=== PATIENT | female | born 1980 | race Two or more races ===

== ENCOUNTER → 2016-06-12 | Outpatient (CLI) | payer OTHER ==
[~2016-06-12] MED LIST: ADV250 IH; ALBU8HFA IH
[2016-06-12 15:53] LABS: BASOPHILS % (AUTO) 0.1 % (0.0-2.0); EOSINOPHILS % (AUTO) 0.7 % (1.0-6.0); HEMOGLOBIN 12.4 g/dL (12.0-16.0); LYMPHOCYTES # (AUTO) 1.6 K/uL (1.0-4.8); LYMPHOCYTES % (AUTO) 17.5 % (22.0-44.0); MEAN CORPUSCULAR HGB CONC 32.6 G/dL (31.0-37.0); MEAN CORPUSCULAR VOLUME 86 fL (80-100); MONOCYTES # (AUTO) 0.3 K/uL (0.1-1.0); MONOCYTES % (AUTO) 3.1 % (2.0-9.0); NEUTROPHILS # (AUTO) 7.3 K/uL (1.8-7.7); NEUTROPHILS % (AUTO) 78.6 % (40.0-70.0); PLATELET COUNT (AUTO) 281 K/uL (150-450); RED BLOOD CELL COUNT(AUTO) 4.42 MIL/uL (4.00-5.20); RED CELL DISTRIBUTION WIDTH 15.2 % (11.5-14.5); WHITE BLOOD COUNT (AUTO) 9.3 K/uL (4.5-11.0)
[2016-06-12 17:31] LABS: RAPID PLASMA REAGIN NONREACTIVE (NONREACTIVE)
[2016-06-12 17:32] LABS: RUBELLA SCREEN (IGG) IMMUNE (IMMUNE)
[2016-06-15 14:32] LABS: HEMOGLOBIN A1 97.8 % (94.0-98.0)
[2016-06-15 23:15] LABS: GC DNA N.A. AMPLIFY Negative (Negative)
== END | disposition home or self-care (01) ==
LOC: LABPV 10:03
PROVIDERS: ATTEND Obstetrics & Gynecology
DX: Z34.81 Encounter for supervision of other normal pregnancy, first trimester (principal); Z3A.12 12 weeks gestation of pregnancy
CPT/HCPCS: 81220; 82947; 83021; 86592; 86762; 86850; 86900; 86901; 87086; 87340; 87389; 87491; 87591; 99001

== ENCOUNTER → 2016-06-25 | Outpatient (CLI) | payer OTHER | END | disposition home or self-care (01) | LOC: LABPV 11:16 | PROVIDERS: ATTEND Obstetrics & Gynecology | DX: O24.415 Gestational diabetes mellitus in pregnancy, controlled by oral hypoglycemic drugs (principal); Z3A.00 Weeks of gestation of pregnancy not specified | CPT/HCPCS: 82652 ==

== ENCOUNTER → 2016-07-31 | Outpatient (CLI) | payer OTHER | END | disposition home or self-care (01) | LOC: LABPV 14:13 | PROVIDERS: ATTEND Obstetrics & Gynecology | DX: O09.892 Supervision of other high risk pregnancies, second trimester (principal); Z3A.14 14 weeks gestation of pregnancy | CPT/HCPCS: 99001 ==

== ENCOUNTER → 2016-08-03 | Outpatient (CLI) | payer OTHER | END | disposition home or self-care (01) | LOC: RADPV 13:15 | PROVIDERS: ATTEND Obstetrics & Gynecology | DX: O32.2XX0 Maternal care for transverse and oblique lie, not applicable or unspecified (principal); Z3A.19 19 weeks gestation of pregnancy | CPT/HCPCS: 76812 ==

== ENCOUNTER → 2016-10-20 | Outpatient (CLI) | payer OTHER ==
[2016-10-20 13:16] LABS: BASOPHILS % (AUTO) 0.2 % (0.0-2.0); EOSINOPHILS % (AUTO) 0.7 % (1.0-6.0); HEMATOCRIT 32.3 % (36-46); LYMPHOCYTES # (AUTO) 1.6 K/uL (1.0-4.8); LYMPHOCYTES % (AUTO) 16.2 % (22.0-44.0); MEAN CORPUSCULAR HEMOGLOBIN 28.4 pg (26.0-34.0); MEAN CORPUSCULAR HGB CONC 33.9 G/dL (31.0-37.0); MEAN CORPUSCULAR VOLUME 84 fL (80-100); MONOCYTES # (AUTO) 0.4 K/uL (0.1-1.0); MONOCYTES % (AUTO) 3.8 % (2.0-9.0); NEUTROPHILS # (AUTO) 7.8 K/uL (1.8-7.7); NEUTROPHILS % (AUTO) 79.1 % (40.0-70.0); PLATELET COUNT (AUTO) 275 K/uL (150-450); RED BLOOD CELL COUNT(AUTO) 3.86 MIL/uL (4.00-5.20); RED CELL DISTRIBUTION WIDTH 15.3 % (11.5-14.5); WHITE BLOOD COUNT (AUTO) 9.8 K/uL (4.5-11.0)
== END | disposition home or self-care (01) ==
LOC: LABPV 11:38
PROVIDERS: ATTEND Obstetrics & Gynecology
DX: O09.522 Supervision of elderly multigravida, second trimester (principal); O24.415 Gestational diabetes mellitus in pregnancy, controlled by oral hypoglycemic drugs; Z3A.00 Weeks of gestation of pregnancy not specified

== ENCOUNTER 2016-10-30 19:53 | Observation (INO) | payer OTHER ==
[~2016-10-30] VITALS: Ht 160 cm; Wt 56.7 kg
[2016-10-30 20:15] VITALS: BP 121/60
[2016-10-30] MEDS ORDERED: GLYB5TAB8 PO (20:16)
[2016-10-30] MEDS ORDERED: PREN1TAB89 (20:18)
[2016-10-31 10:47] LABS: GLUCOSE COMMENT 1 Post Meal; GLUCOSE,POINT OF CARE 117 MG/DL (70-110)
== END 2016-10-30 21:25 | disposition home or self-care (01) ==
LOC: 4S 19:53
PROVIDERS: ADMIT Obstetrics & Gynecology; ATTEND Obstetrics & Gynecology
DX: O24.419 Gestational diabetes mellitus in pregnancy, unspecified control (principal); O99.213 Obesity complicating pregnancy, third trimester; O99.513 Diseases of the respiratory system complicating pregnancy, third trimester; J45.909 Unspecified asthma, uncomplicated; O09.523 Supervision of elderly multigravida, third trimester; Z3A.32 32 weeks gestation of pregnancy
CPT/HCPCS: 59025; 82962; G0378

== ENCOUNTER 2016-11-01 19:40 | Observation (INO) | payer OTHER ==
[~2016-11-01] VITALS: Ht 160 cm; Wt 110.7 kg
[~2016-11-01 19:40] MED LIST changes: -ADV250 IH; +GLYB5TAB8 PO; +PREN1TAB89
[2016-11-01 20:16] LABS: GLUCOSE COMMENT 1 Post Meal; GLUCOSE,POINT OF CARE 115 MG/DL (70-110)
== END 2016-11-01 20:45 | disposition home or self-care (01) ==
LOC: 4S 19:40
PROVIDERS: ADMIT Obstetrics & Gynecology; ATTEND Obstetrics & Gynecology
DX: O24.419 Gestational diabetes mellitus in pregnancy, unspecified control (principal); O99.213 Obesity complicating pregnancy, third trimester; O09.523 Supervision of elderly multigravida, third trimester; Z3A.32 32 weeks gestation of pregnancy
CPT/HCPCS: 59025; 82962; G0378

== ENCOUNTER 2016-11-05 19:35 | Observation (INO) | payer OTHER ==
[~2016-11-05] VITALS: Ht 160 cm; Wt 110.7 kg
[~2016-11-05 19:35] MED LIST changes: +ADV250 IH
[2016-11-05 20:06] VITALS: BP 109/64
[2016-11-05] MEDS ORDERED: GLYB2.5 PO ×2 (20:10→20:11)
[2016-11-05 20:17] LABS: GLUCOSE,POINT OF CARE 117 MG/DL (70-110)
== END 2016-11-05 20:45 | disposition home or self-care (01) ==
LOC: 4S 19:35
PROVIDERS: ADMIT Obstetrics & Gynecology; ATTEND Obstetrics & Gynecology
DX: O24.419 Gestational diabetes mellitus in pregnancy, unspecified control (principal); O62.9 Abnormality of forces of labor, unspecified; O09.523 Supervision of elderly multigravida, third trimester; Z3A.33 33 weeks gestation of pregnancy
CPT/HCPCS: 59025; 82962; G0378

== ENCOUNTER 2016-11-05 22:41 | Observation (INO) | payer OTHER ==
[~2016-11-05] VITALS: Ht 160 cm; Wt 112.1 kg
[~2016-11-05 22:41] MED LIST changes: -ADV250 IH; +GLYB2.5 PO; -GLYB5TAB8 PO
[2016-11-09 19:41] VITALS: BP 110/62
[2016-11-11 16:32] LABS: GLUCOSE COMMENT 1 Doctor Notified; GLUCOSE,POINT OF CARE 172 MG/DL (70-110)
== END 2016-11-09 20:11 | disposition home or self-care (01) ==
LOC: 4S 11-09 20:11
PROVIDERS: ADMIT Obstetrics & Gynecology; ATTEND Obstetrics & Gynecology
DX: O24.419 Gestational diabetes mellitus in pregnancy, unspecified control (principal); O99.213 Obesity complicating pregnancy, third trimester; O09.523 Supervision of elderly multigravida, third trimester; Z3A.34 34 weeks gestation of pregnancy
CPT/HCPCS: 59025; 82962; G0378

== ENCOUNTER 2016-11-13 19:49 | Observation (INO) | payer OTHER ==
[~2016-11-13] VITALS: Ht 160 cm; Wt 112.5 kg
[2016-11-13 20:57] VITALS: BP 127/63
[2016-11-13 20:57] LABS: GLUCOSE,POINT OF CARE 77 MG/DL (70-110)
== END 2016-11-13 21:00 | disposition home or self-care (01) ==
LOC: 4S 19:49
PROVIDERS: ADMIT Obstetrics & Gynecology; ATTEND Obstetrics & Gynecology
DX: O24.419 Gestational diabetes mellitus in pregnancy, unspecified control (principal); O09.523 Supervision of elderly multigravida, third trimester; Z3A.34 34 weeks gestation of pregnancy
CPT/HCPCS: 59025; 82962; G0378

== ENCOUNTER 2016-11-16 19:51 | Observation (INO) | payer OTHER ==
[~2016-11-16] VITALS: Ht 160 cm; Wt 112.0 kg
[2016-11-16 21:23] LABS: GLUCOSE COMMENT 1 Doctor Notified; GLUCOSE,POINT OF CARE 152 MG/DL (70-110)
[2016-11-16 23:00] VITALS: BP 116/56
== END 2016-11-16 22:40 | disposition home or self-care (01) ==
LOC: 4S 19:51
PROVIDERS: ADMIT Obstetrics & Gynecology; ATTEND Obstetrics & Gynecology
DX: O24.419 Gestational diabetes mellitus in pregnancy, unspecified control (principal); Z3A.35 35 weeks gestation of pregnancy
CPT/HCPCS: 59025; 82962; G0378

== ENCOUNTER → 2016-11-20 | Outpatient (CLI) | payer OTHER | END | disposition home or self-care (01) | LOC: RADPV 10:46 | PROVIDERS: ATTEND Obstetrics & Gynecology | DX: O99.213 Obesity complicating pregnancy, third trimester (principal); O09.513 Supervision of elderly primigravida, third trimester; Z3A.35 35 weeks gestation of pregnancy | CPT/HCPCS: 76812 ==

== ENCOUNTER 2016-11-21 21:07 | Observation (INO) | payer OTHER ==
[~2016-11-21] VITALS: Ht 160 cm; Wt 112.0 kg
[2016-11-21 21:31] LABS: GLUCOSE,POINT OF CARE 92 MG/DL (70-110)
== END 2016-11-21 21:40 | disposition home or self-care (01) ==
LOC: 4S 21:07
PROVIDERS: ADMIT Obstetrics & Gynecology; ATTEND Obstetrics & Gynecology
DX: O24.419 Gestational diabetes mellitus in pregnancy, unspecified control (principal); Z3A.35 35 weeks gestation of pregnancy
CPT/HCPCS: 59025; 82962; G0378

== ENCOUNTER 2016-12-04 14:50 | Observation (INO) | payer OTHER ==
[~2016-12-04] VITALS: Ht 160 cm; Wt 112.0 kg
[2016-12-04 15:25] VITALS: BP 116/76
[2016-12-04] MEDS ORDERED: GLYB5 PO ×2 (15:33)
[2016-12-04 15:52] LABS: GLUCOSE COMMENT 1 Post Meal; GLUCOSE,POINT OF CARE 152 MG/DL (70-110)
== END 2016-12-04 16:10 | disposition home or self-care (01) ==
LOC: 4S 14:50
PROVIDERS: ADMIT Obstetrics & Gynecology; ATTEND Obstetrics & Gynecology
DX: O24.419 Gestational diabetes mellitus in pregnancy, unspecified control (principal); Z3A.37 37 weeks gestation of pregnancy
CPT/HCPCS: 59025; 82962; G0378

== ENCOUNTER 2016-12-06 23:20 | Inpatient (IN) | payer OTHER ==
[~2016-12-06] VITALS: Ht 160 cm; Wt 112.9 kg
[~2016-12-06 23:20] MED LIST changes: +GLYB5 PO
[2016-12-06] MEDS ORDERED: RINGERS SOLUTION,LACTATED 1,000 ML IV SCH (23:27)
[2016-12-06] MEDS ORDERED: RINGERS SOLUTION,LACTATED 1,000 ML IV PRN (23:27)
[2016-12-06] MEDS ORDERED: OXYTOCIN 30 UNITS/LACT RINGERS 500 ML IV ONE (23:27)
[2016-12-06] MEDS ORDERED: METOCLOPRAMIDE HCL 5 MG/ML 2 ML VIAL IVP PRN (23:30)
[2016-12-06] MEDS ORDERED: CITRIC ACID/SODIUM CITRATE 30 ML SOLUTION UDCUP PO PRN (23:30)
[2016-12-07 00:09] LABS: BASOPHILS # (AUTO) 0.02 K/uL (0.00-0.20); BASOPHILS % (AUTO) 0.3 % (0.0-2.0); EOSINOPHILS # (AUTO) 0.07 K/uL (0.00-0.70); EOSINOPHILS % (AUTO) 0.84 % (1.0-6.0); HEMATOCRIT 34.4 % (36-46); HEMOGLOBIN 11.5 g/dL (12.0-16.0); LYMPHOCYTES # (AUTO) 2.5 K/uL (1.0-4.8); MEAN CORPUSCULAR HEMOGLOBIN 27.5 pg (26.0-34.0); MEAN CORPUSCULAR HGB CONC 33.5 G/dL (31.0-37.0); MEAN CORPUSCULAR VOLUME 82 fL (80-100); MONOCYTES # (AUTO) 0.5 K/uL (0.1-1.0); MONOCYTES % (AUTO) 5.7 % (2.0-9.0); NEUTROPHILS # (AUTO) 5.7 K/uL (1.8-7.7); NEUTROPHILS % (AUTO) 65.2 % (40.0-70.0); PLATELET COUNT (AUTO) 258 K/uL (150-450); RED BLOOD CELL COUNT(AUTO) 4.18 MIL/uL (4.00-5.20); RED CELL DISTRIBUTION WIDTH 15.5 % (11.5-14.5); WHITE BLOOD COUNT (AUTO) 8.8 K/uL (4.5-11.0)
[2016-12-07] MEDS ORDERED: DINOPROSTONE 10 MG VAGINAL SUPPOSITORY VG ONE (01:00)
[2016-12-07 01:28] LABS: GLUCOSE,POINT OF CARE 137 MG/DL (70-110)
[2016-12-07 03:03] LABS: GLUCOSE,POINT OF CARE 135 MG/DL (70-110)
[2016-12-07] MEDS: FentaNYL CITRATE-PF 100 MCG/2 ML VIAL IVP PRN ×2 (04:07→04:13)
[2016-12-07 05:13] LABS: GLUCOSE,POINT OF CARE 125 MG/DL (70-110)
[2016-12-07] MEDS ORDERED: FentaNYL/BUPIV 0.125%/NS/PF 200 ML ED ONE (05:20)
[2016-12-07] MEDS ORDERED: LIDOCAINE HCL 2%/EPI 1:200,000/PF 10 ML VIAL ONE (05:20)
[2016-12-07] MEDS ORDERED: FentaNYL/BUPIV 0.125%/NS/PF 200 ML ED PRN (05:40)
[2016-12-07] MEDS ORDERED: DiphenhydrAMINE HCL 50 MG/ML VIAL IVP PRN (05:45)
[2016-12-07] MEDS ORDERED: ONDANSETRON HCL 4 MG/2 ML VIAL IVP PRN (05:45)
[2016-12-07] MEDS ORDERED: NALBUPHINE HCL 10 MG/ML VIAL IVP PRN (05:45)
[2016-12-07] MEDS ORDERED: PROMETHAZINE HCL 25 MG/ML VIAL IM PRN (05:45)
[2016-12-07] MEDS ORDERED: TERBUTALINE SULFATE 1 MG/ML VIAL SQ PRN (06:15)
[2016-12-07] MEDS ORDERED: OXYGEN THERAPY IH SCH (08:00)
[2016-12-07] MEDS ORDERED: ACETAMINOPHEN/CODEINE 300-30 MG TABLET PO PRN ×2 (08:30)
[2016-12-07] MEDS ORDERED: BENZOCAINE 20%/MENTHOL 56 GM SPRAY CANISTER TP PRN (08:30)
[2016-12-07] MEDS ORDERED: GLYCERIN/WITCH HAZEL LEAF 40 PADS JAR TP PRN (08:30)
[2016-12-07] MEDS ORDERED: LANOLIN 7 GM OINTMENT TP PRN (08:30)
[2016-12-07] MEDS: SENNA/DOCUSATE SODIUM 187-50 MG TABLET PO SCH ×2 (09:04→21:00)
[2016-12-07] MEDS: MAGNESIUM HYDROXIDE SUSPENSION 30 ML UDCUP PO SCH ×2 (09:04→21:00)
[2016-12-07] MEDS: IBUPROFEN 600 MG TABLET PO PRN (14:27)
[2016-12-08] MEDS: IBUPROFEN 600 MG TABLET PO PRN ×2 (01:44→08:13)
[2016-12-08] MEDS: SENNA/DOCUSATE SODIUM 187-50 MG TABLET PO SCH (08:13)
[2016-12-08] MEDS: MAGNESIUM HYDROXIDE SUSPENSION 30 ML UDCUP PO SCH (09:00)
[2016-12-08] MEDS ORDERED: IBUP-2070 PO (09:24)
[2016-12-08] MEDS ORDERED: DSS100 PO (09:25)
== END 2016-12-08 11:35 | disposition home or self-care (01) | DRG 775 ==
LOC: 4S 23:20 → PREOBSVTOIN 01-04 23:34
PROVIDERS: ADMIT Obstetrics & Gynecology; ATTEND Obstetrics & Gynecology
PROC: 10E0XZZ Delivery of Products of Conception, External Approach (ICD-10-PCS; principal; 2016-12-06)
PROC: 10907ZC Drainage of Amniotic Fluid, Therapeutic from Products of Conception, Via Natural or Artificial Opening (ICD-10-PCS; 2016-12-06)
DX: O24.419 Gestational diabetes mellitus in pregnancy, unspecified control (principal); J45.909 Unspecified asthma, uncomplicated; Z37.0 Single live birth; O99.511 Diseases of the respiratory system complicating pregnancy, first trimester; Z90.49 Acquired absence of other specified parts of digestive tract; Z3A.01 Less than 8 weeks gestation of pregnancy; Z3A.38 38 weeks gestation of pregnancy
CPT/HCPCS: 82962; 86850; 86900; 86901; J2590; J3010; J3105; J3490; J7120

== ENCOUNTER → 2017-05-13 | Outpatient (CLI) | payer OTHER ==
[~2017-05-13] MED LIST changes: +DSS100 PO; -GLYB2.5 PO; -GLYB5 PO; +IBUP-2070 PO
[2017-05-13 13:10] LABS: BASOPHILS # (AUTO) 0.02 K/uL (0.00-0.20); BASOPHILS % (AUTO) 0.4 % (0.0-2.0); EOSINOPHILS # (AUTO) 0.06 K/uL (0.00-0.70); EOSINOPHILS % (AUTO) 1.03 % (1.0-6.0); HEMATOCRIT 37.8 % (36-46); HEMOGLOBIN 12.4 g/dL (12.0-16.0); LYMPHOCYTES # (AUTO) 1.7 K/uL (1.0-4.8); LYMPHOCYTES % (AUTO) 28.8 % (22.0-44.0); MEAN CORPUSCULAR HEMOGLOBIN 28.1 pg (26.0-34.0); MEAN CORPUSCULAR HGB CONC 32.9 G/dL (31.0-37.0); MEAN CORPUSCULAR VOLUME 85 fL (80-100); MONOCYTES # (AUTO) 0.3 K/uL (0.1-1.0); NEUTROPHILS # (AUTO) 3.7 K/uL (1.8-7.7); NEUTROPHILS % (AUTO) 63.8 % (40.0-70.0); PLATELET COUNT (AUTO) 273 K/uL (150-450); RED BLOOD CELL COUNT(AUTO) 4.43 MIL/uL (4.00-5.20); RED CELL DISTRIBUTION WIDTH 13.9 % (11.5-14.5)
[2017-05-13 13:36] LABS: THYROID STIMULATING HORMONE < 0.01 uIU/mL (0.36-3.74)
[2017-05-13 13:41] LABS: HEMOGLOBIN A1C 6.2 % (4.5-6.2)
[2017-05-17 08:36] LABS: HIV 1-2 SCREEN 4TH GEN W/RFLX Non Reactive (Non Reactive)
== END | disposition home or self-care (01) ==
LOC: LABPV 09:42
PROVIDERS: ATTEND Obstetrics & Gynecology
DX: Z01.419 Encounter for gynecological examination (general) (routine) without abnormal findings (principal); Z11.3 Encounter for screening for infections with a predominantly sexual mode of transmission
CPT/HCPCS: 82951; 82952; 83036; 84439; 84443; 86592; 86803; 87340; 87389

== ENCOUNTER → 2017-06-18 | Outpatient (CLI) | payer OTHER ==
[2017-06-18 11:18] LABS: FREE T4 (FREE THYROXINE) 0.52 ng/dL (0.76-1.46); THYROID STIMULATING HORMONE 1.16 uIU/mL (0.36-3.74)
== END | disposition home or self-care (01) ==
LOC: RADPV 08:50
PROVIDERS: ATTEND Pediatrics
DX: E04.9 Nontoxic goiter, unspecified (principal); R94.6 Abnormal results of thyroid function studies
CPT/HCPCS: 76536; 84439; 84443; 86376

== ENCOUNTER 2017-06-25 10:14 | Day surgery (SDC) | payer OTHER ==
[2017-06-24 12:06] LABS: BASOPHILS % (AUTO) 0.6 % (0.0-2.0); EOSINOPHILS % (AUTO) 2.3 % (1.0-6.0); HEMATOCRIT 37.4 % (36-46); HEMOGLOBIN 12.4 g/dL (12.0-16.0); LYMPHOCYTES # (AUTO) 2.4 K/uL (1.0-4.8); LYMPHOCYTES % (AUTO) 29.6 % (22.0-44.0); MEAN CORPUSCULAR HEMOGLOBIN 26.7 pg (26.0-34.0); MEAN CORPUSCULAR HGB CONC 33.2 G/dL (31.0-37.0); MEAN CORPUSCULAR VOLUME 81 fL (80-100); MONOCYTES # (AUTO) 0.4 K/uL (0.1-1.0); MONOCYTES % (AUTO) 4.7 % (2.0-9.0); NEUTROPHILS % (AUTO) 62.8 % (40.0-70.0); PLATELET COUNT (AUTO) 312 K/uL (150-450); RED BLOOD CELL COUNT(AUTO) 4.65 MIL/uL (4.00-5.20); RED CELL DISTRIBUTION WIDTH 13.9 % (11.5-14.5)
[2017-06-24 12:49] LABS: ALANINE AMINOTRANSFERASE 36 U/L (12-78); ALBUMIN 3.6 g/dL (3.4-5.0); ALKALINE PHOSPHATASE 80 U/L (46-116); ANION GAP 10 mmol/L (8-16); ASPARTATE AMINOTRANSFERASE 26 U/L (15-37); BILIRUBIN,TOTAL 0.3 mg/dL (0.1-1.0); CALCIUM, TOTAL 8.6 mg/dL (8.8-10.5); CARBON DIOXIDE 27 mmol/L (22-29); CHLORIDE 105 mmol/L (98-107); FREE T4 (FREE THYROXINE) 0.41 ng/dL (0.76-1.46); GLOMERULAR FILTR. RATE CALC > 60 mL/min (>60); GLUCOSE,RANDOM 100 mg/dL (70-110); POTASSIUM 3.9 mmol/L (3.5-5.1); SODIUM SERUM 142 mmol/L (136-145); THYROID STIMULATING HORMONE 4.57 uIU/mL (0.36-3.74); TOTAL PROTEIN, SERUM 7.3 g/dL (6.4-8.2); UREA NITROGEN, BLOOD 12 mg/dL (7-18)
[~2017-06-25] VITALS: Ht 160 cm; Wt 99.1 kg
[~2017-06-25 10:14] MED LIST changes: +A20IH1 IH; -ALBU8HFA IH; -DSS100 PO; +FLUT12AE7 IH; +FLUT16H NASAL; -IBUP-2070 PO; -PREN1TAB89; +RINGERS SOLUTION,LACTATED 1,000 ML IV ONE
[2017-06-25] MEDS ORDERED: PROPOFOL 1% 20 ML VIAL IVP ONE (10:15)
[2017-06-25] MEDS ORDERED: SUCCINYLCHOLINE CHLORIDE 20 MG/ML 10 ML VIAL IVP ONE (10:15)
[2017-06-25] MEDS ORDERED: 0.9% SODIUM CHLORIDE 10 ML VIAL IVP ONE (10:15)
[2017-06-25] MEDS ORDERED: LIDOCAINE HCL/PF 2% 5 ML VIAL IM ONE (10:15)
[2017-06-25] MEDS ORDERED: DEXAMETHASONE SOD PHOS 4 MG/ML VIAL IVP ONE (10:15)
[2017-06-25] MEDS ORDERED: ONDANSETRON HCL 4 MG/2 ML VIAL IVP ONE (10:15)
[2017-06-25] MEDS ORDERED: MIDAZOLAM HCL 2 MG/2 ML VIAL IVP ONE (10:15)
[2017-06-25] MEDS ORDERED: FentaNYL CITRATE-PF 100 MCG/2 ML VIAL IVP ONE (10:15)
[2017-06-25] MEDS ORDERED: KETOROLAC TROMETHAMINE 60 MG/2 ML VIAL IM ONE (10:15)
[2017-06-25] MEDS ORDERED: RINGERS SOLUTION,LACTATED 1,000 ML IV ONE (10:30)
[2017-06-25] MEDS ORDERED: BUPIVACAINE HCL/PF 0.5% 30 ML VIAL ONE (11:10)
[2017-06-25] MEDS ORDERED: BUPIVACAINE HCL/PF 0.25% 30 ML VIAL ONE (11:18)
[2017-06-25] MEDS ORDERED: ACETAMINOPHEN 1000 MG/ISO-OSM 100 ML IV ONE (11:50)
[2017-06-25] MEDS ORDERED: GUM MASTIC/STORAX/MSAL/ALCOHOL LIQUID 0.67 ML VIAL TP ONE (12:17)
[2017-06-25] MEDS ORDERED: HYDROmorphone 2 MG/ML SYRINGE IVP PRN (12:30)
[2017-06-25] MEDS ORDERED: MEPERIDINE-PF 25 MG/ML SYRINGE IVP PRN (12:30)
[2017-06-25] MEDS ORDERED: FentaNYL CITRATE-PF 100 MCG/2 ML VIAL ONE ×2 (12:50→13:09)
[2017-06-25] MEDS: FentaNYL CITRATE-PF 100 MCG/2 ML VIAL IVP PRN ×4 (12:54→13:23)
[2017-06-25] MEDS ORDERED: OxyCODONE HCL/ACETAMINOPHEN 10-325 MG TABLET PO ONE ×2 (13:45→14:15)
[2017-06-25] MEDS ORDERED: OXYGEN THERAPY IH SCH (20:00)
== END 2017-06-25 15:20 | disposition home or self-care (01) ==
LOC: SURGERY 10:14
PROVIDERS: ATTEND Obstetrics & Gynecology
DX: Z30.2 Encounter for sterilization (principal); Z64.1 Problems related to multiparity; E03.9 Hypothyroidism, unspecified; E66.9 Obesity, unspecified; J45.909 Unspecified asthma, uncomplicated; F32.9 Major depressive disorder, single episode, unspecified; Z90.49 Acquired absence of other specified parts of digestive tract; Z98.890 Other specified postprocedural states; Z79.01 Long term (current) use of anticoagulants; Z91.048 Other nonmedicinal substance allergy status; Z68.38 Body mass index [BMI] 38.0-38.9, adult; Z79.899 Other long term (current) drug therapy
CPT/HCPCS: 36415; 58671; 71046; 80053; 84439; 84443; 84703; 85025; 85610; 85730; 93005; J0131; J0330; J0690; J1100; J1885; J2250; J2405; J2704; J3010; J3490 ×2; J7120

== ENCOUNTER → 2017-09-22 | Outpatient (CLI) | payer OTHER ==
[~2017-09-22] MED LIST changes: -RINGERS SOLUTION,LACTATED 1,000 ML IV ONE
[2017-09-22 16:46] LABS: THYROID STIMULATING HORMONE 1.15 uIU/mL (0.36-3.74)
== END | disposition home or self-care (01) ==
LOC: LABPV 15:09
PROVIDERS: ATTEND Physician Assistant
DX: R94.6 Abnormal results of thyroid function studies (principal)
CPT/HCPCS: 84436; 84443

== ENCOUNTER → 2018-04-06 | Outpatient (CLI) | payer OTHER ==
[2018-04-06 13:55] LABS: BASOPHILS % (AUTO) 0.3 % (0.0-2.0); EOSINOPHILS % (AUTO) 1.6 % (1.0-6.0); HEMATOCRIT 36.3 % (36-46); LYMPHOCYTES # (AUTO) 2.3 K/uL (1.0-4.8); LYMPHOCYTES % (AUTO) 28.4 % (22.0-44.0); MEAN CORPUSCULAR HGB CONC 33.1 G/dL (31.0-37.0); MEAN CORPUSCULAR VOLUME 82 fL (80-100); MONOCYTES # (AUTO) 0.4 K/uL (0.1-1.0); MONOCYTES % (AUTO) 4.7 % (2.0-9.0); NEUTROPHILS # (AUTO) 5.2 K/uL (1.8-7.7); PLATELET COUNT (AUTO) 327 K/uL (150-450); RED BLOOD CELL COUNT(AUTO) 4.45 MIL/uL (4.00-5.20); RED CELL DISTRIBUTION WIDTH 14.9 % (11.5-14.5)
[2018-04-06 14:05] LABS: HEMOGLOBIN A1C 6.1 % (4.5-6.2)
[2018-04-06 14:13] LABS: ALANINE AMINOTRANSFERASE 28 U/L (12-78); ALBUMIN 3.6 g/dL (3.4-5.0); ALKALINE PHOSPHATASE 58 U/L (46-116); ANION GAP 8 mmol/L (8-16); ASPARTATE AMINOTRANSFERASE 26 U/L (15-37); BILIRUBIN,TOTAL 0.3 mg/dL (0.1-1.0); CALCIUM, TOTAL 8.3 mg/dL (8.8-10.5); CARBON DIOXIDE 26 mmol/L (22-29); CHLORIDE 105 mmol/L (98-107); CHOLESTEROL 147 mg/dL (131-200); CREATININE 0.66 mg/dL (0.60-1.30); GLOMERULAR FILTR. RATE CALC > 60 mL/min (>60); GLUCOSE,RANDOM 97 mg/dL (70-110); HDL CHOLESTEROL 49 mg/dL (40-60); LDL CHOL (CALC.) 75 mg/dL (0-130); SODIUM SERUM 139 mmol/L (136-145); THYROID STIMULATING HORMONE 1.25 uIU/mL (0.36-3.74); TOTAL PROTEIN, SERUM 7.6 g/dL (6.4-8.2); TRIGLYCERIDES 117 mg/dL (15-150); UREA NITROGEN, BLOOD 10 mg/dL (7-18)
== END | disposition home or self-care (01) ==
LOC: LABPV 11:49
PROVIDERS: ATTEND Pediatrics
DX: L73.2 Hidradenitis suppurativa (principal); R73.03 Prediabetes; R79.89 Other specified abnormal findings of blood chemistry; Z87.19 Personal history of other diseases of the digestive system; Z68.41 Body mass index [BMI] 40.0-44.9, adult
CPT/HCPCS: 83036; 84443